=== PATIENT | female | born 1960 | race Caucasian/White ===

== ENCOUNTER → 2016-09-30 | Outpatient (CLI) | payer OTHER ==
[~2016-09-30] MED LIST: ALBU17AE4 IH; ASPI-558 PO; CYCL-208 PO; DICY10CA52 PO; GADOBUTROL 10mMol/10ml INJECTION IV ONE; LEVO88TA41 PO; OMEP-29 PO; SALINE FLUSH 10ml SYRINGE ONE
--- NOTE | 2016-09-30 16:07 | DI ---
Indication: ITS.REASON: M54.6 PAIN IN THORACIC SPINE PROCEDURE: MRI THORACIC SPINE W/WO CONTRA: Encounter: Initial Comparison: MRI thoracic spine dated April 01, 2012 Technique: Multiplanar, multisequence, thoracic spine protocol MR imaging with and without contrast of the spine was acquired. Contrast: 7 mL of Gadavist FINDINGS: Alignment of the thoracic spine is unchanged. Postoperative changes are seen with posterior decompression at the T2 level and also from T5 through T8. Spinal cord signal intensity is normal. No focal cord lesion or enhancing mass within the central spinal canal. There is spinal hardware at the C6-C7 level causing artifact obscuring the visualized lower cervical spinal cord. The vertebral body heights are maintained. Age-appropriate degenerative changes are seen within the facet joints and intervertebral disc, but these do not result in significant compromise of the spinal canal or neural foramina. There is a small thin rim of T2 hypointensity in the posterior epidural space space measuring 3.8 cm craniocaudally and 0.6 cm in maximal anteroposterior dimension. This was felt to represent a possible arachnoid cyst on the comparison study. This is stable to if anything slightly smaller than the comparison study. This area does not show any postcontrast enhancement and does not cause any mass effect upon the dorsal aspect of the spinal cord. There is otherwise normal CSF signal intensity posterior to the thoracic cord. IMPRESSION: 1. Extensive posterior decompression. No evidence of an enhancing central spinal canal mass or focal disk protrusion. No neural foraminal stenosis seen. 2. Stable to slight decrease in size of a subtle area of differential signal in the posterior epidural space at T9-T11 could be a normal anatomic variant or possibly small arachnoid cyst. This does not cause any significant mass effect or canal stenosis. .
== END ==
LOC: IMA 14:28
PROVIDERS: ATTEND Pain Medicine Pain Medicine
DX: M54.6 Pain in thoracic spine (principal); Z98.890 Other specified postprocedural states
CPT/HCPCS: 72157; A9585